=== PATIENT | female | born 1975 | race Caucasian/White ===

== ENCOUNTER 2021-08-27 09:19 | Emergency (ER) | payer MEDICAID ==
[~2021-08-27] VITALS: Ht 157.5 cm; Wt 65.8 kg
[2021-08-27 09:29] VITALS: BP 141/73
--- NOTE | 2021-08-27 09:48 | NUR ---
46Y/O FEMALE BIB FAMILY MEMBER C/O N/V/D X3 DAYS WITH BODY ACHES EPIGASTRIC PAIN RADIATING TO THE RIGHT UPPER ABDOMEN, BURNING PAIN, PAIN NOTED UPON PALPATION. STATES UNABLE TO TOLERATE PO INTAKE WITHOUT VOMITING. BS THIS AM WAS 91. DENIES ANY FEVER, DENIES ANY BLOOD IN STOOL OR VOMITUS, STATES THAT VOMITUS APPEARS "YELLOW" PMH: DM
[2021-08-27] MEDS ORDERED: ALUMINUM HYD/MAG/SIMETHICONE 30 ML, DICYCLOMINE HCL LIQUID 20 MG, LIDOCAINE VISCOUS 2% ... PO ONE ×3 (10:05)
[2021-08-27] MEDS ORDERED: ONDANSETRON 4 MG/2 ML VIAL IVP ONE (10:05)
[2021-08-27] MEDS ORDERED: NACL 0.9% 1,000 ML IV SCH (10:05)
[2021-08-27] MEDS ORDERED: ALUMINUM HYD/MAG/SIMETHICONE 30 ML UDC ONE (10:11)
[2021-08-27] MEDS ORDERED: DICYCLOMINE HCL LIQUID 10 MG/5 ML UDC ONE (10:12)
[2021-08-27 10:35] LABS: BASOPHILS % (AUTO) 0.2 % (0.0-2.0); EOSINOPHILS # (AUTO) 0.1 K/uL (0-0.4); EOSINOPHILS % (AUTO) 0.5 % (0.0-4.0); HEMATOCRIT 39.1 % (36-48); HEMOGLOBIN 12.8 g/dL (12.0-16.0); LYMPHOCYTES # (AUTO) 0.9 K/uL (2.5-16.5); LYMPHOCYTES % (AUTO) 5.4 % (20.5-51.1); MEAN CORPUSCULAR HEMOGLOBIN 27 pg (27-31); MEAN CORPUSCULAR HGB CONC 33 g/dL (33-37); MEAN CORPUSCULAR VOLUME 81.5 fL (80-94); MONOCYTES % (AUTO) 5.8 % (1.7-9.3); NEUTROPHILS # (AUTO) 14.6 K/uL (1.8-7.7); NEUTROPHILS % (AUTO) 88.1 % (42.2-75.2); PLATELET COUNT (AUTO) 291 K/uL (140-450); RED CELL DISTRIBUTION WIDTH 14.8 % (11.6-13.7); WHITE BLOOD COUNT (AUTO) 16.6 K/uL (4.8-10.8)
[2021-08-27 10:51] LABS: ALBUMIN 3.8 g/dL (3.4-5.0); ANION GAP 14.7 (8-16); CARBON DIOXIDE 26.7 mmol/L (21-32); CREATININE 0.7 mg/dL (0.6-1.3); POTASSIUM 3.4 mmol/L (3.5-5.1); TOTAL BILIRUBIN 0.3 mg/dL (0.0-1.0)
--- NOTE | 2021-08-27 11:26 | NUR ---
PT IN BED ASLEEP, DENIES ANY PAIN, N/V AT THIS TIME
[2021-08-27 11:55] VITALS: BP 114/55
--- NOTE | 2021-08-27 12:09 | NUR ---
MAGDA AT BEDSIDE
[2021-08-27] MEDS ORDERED: FAMO-90 PO (13:18)
[2021-08-27] MEDS ORDERED: ONDA-188 SL (13:18)
--- NOTE | 2021-08-27 13:30 | NUR ---
Patient discharged with v/s stable. Written and verbal after care instructions ABOUT GASTRITIS given and explained. Patient alert, oriented and verbalized understanding of instructions. Ambulatory with steady gait. All questions addressed prior to discharge. ID band removed. Patient advised to follow up with PMD. Rx of ZOFRAN ODT AND PEPCID given. Patient educated on indication of medication including possible reaction and side effects. Opportunity to ask questions provided and answered.
== END 2021-08-27 13:29 | disposition home or self-care (01) ==
LOC: MED 09:19
DX: K29.70 Gastritis, unspecified, without bleeding (principal); K21.9 Gastro-esophageal reflux disease without esophagitis; E11.9 Type 2 diabetes mellitus without complications; J45.909 Unspecified asthma, uncomplicated; Z79.4 Long term (current) use of insulin; Z79.899 Other long term (current) drug therapy
CPT/HCPCS: 36415; 76705; 80053; 83690; 85025; 96361; 96374; 99284; J2405; Q0092; J7030

== ENCOUNTER 2022-08-24 07:32 | Day surgery (SDC) | payer MEDICAID ==
[~2022-08-24] VITALS: Ht 162.6 cm; Wt 68.0 kg
[~2022-08-24 07:32] MED LIST: FAMO-90 PO; ONDA-188 SL
[2022-08-24] MEDS ORDERED: MIDAZOLAM 5 MG/5 ML VIAL ONE (08:43)
[2022-08-24] MEDS ORDERED: fentaNYL citrate 0.05 MG/ML VIAL ONE (08:43)
[2022-08-24] MEDS ORDERED: diphenhydrAMINE 50 MG/ML VIAL ONE (08:43)
[2022-08-24] MEDS ORDERED: LIDOCAINE 2% 100 MG/5 ML UJET TP ONE (08:46)
[2022-08-24] MEDS ORDERED: fentaNYL citrate 0.05 MG/ML VIAL IVP ONE (10:10)
[2022-08-24] MEDS ORDERED: MIDAZOLAM 2 MG/2 ML VIAL IV ONE (10:10)
[2022-08-24] MEDS ORDERED: diphenhydrAMINE 50 MG/ML VIAL IVP ONE (10:10)
== END 2022-08-24 09:50 | disposition home or self-care (01) ==
LOC: MDS 07:32 → MMU 07:38 → MDS 09:50
PROVIDERS: ATTEND Internal Medicine Gastroenterology
DX: Z12.11 Encounter for screening for malignant neoplasm of colon (principal); K21.00 Gastro-esophageal reflux disease with esophagitis, without bleeding; K29.50 Unspecified chronic gastritis without bleeding; B96.81 Helicobacter pylori [H. pylori] as the cause of diseases classified elsewhere; E11.9 Type 2 diabetes mellitus without complications; E78.5 Hyperlipidemia, unspecified; J45.909 Unspecified asthma, uncomplicated; I10 Essential (primary) hypertension; Z79.84 Long term (current) use of oral hypoglycemic drugs; Z79.899 Other long term (current) drug therapy; Z90.49 Acquired absence of other specified parts of digestive tract
CPT/HCPCS: 43239; 45378; J1200; J2250; J3010

== ENCOUNTER 2023-04-07 09:29 | Day surgery (SDC) | payer MEDICAID ==
[~2023-04-07] VITALS: Ht 162.6 cm; Wt 70.3 kg
[2023-04-07] MEDS ORDERED: SIMETHICONE 40 MG/0.6 ML ONE (12:21)
[2023-04-07] MEDS ORDERED: fentaNYL citrate 0.05 MG/ML VIAL ONE (12:21)
[2023-04-07] MEDS ORDERED: MIDAZOLAM 2 MG/2 ML VIAL ONE (12:21)
[2023-04-07] MEDS: MIDAZOLAM 2 MG/2 ML VIAL IVP ONE (12:51)
== END 2023-04-07 13:55 | disposition home or self-care (01) ==
LOC: MDS 09:29 → MMU 10:13 → MDS 13:55
PROVIDERS: ATTEND Internal Medicine Gastroenterology
DX: K31.A0 Gastric intestinal metaplasia, unspecified (principal); K29.50 Unspecified chronic gastritis without bleeding; K22.70 Barrett's esophagus without dysplasia; K25.9 Gastric ulcer, unspecified as acute or chronic, without hemorrhage or perforation; R11.0 Nausea; I10 Essential (primary) hypertension; E11.9 Type 2 diabetes mellitus without complications; E78.5 Hyperlipidemia, unspecified; Z90.710 Acquired absence of both cervix and uterus; Z79.84 Long term (current) use of oral hypoglycemic drugs; Z79.899 Other long term (current) drug therapy
CPT/HCPCS: 43239; 88305; 88312; 88313; 88342; J2250; J3010